=== PATIENT | female | born 2000 | race Caucasian/White ===

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

== ENCOUNTER 2022-07-18 14:20 | Emergency (ER) | payer OTHER, SELFPAY ==
[2022-07-18] MEDS ORDERED: predniSONE 20 MG TAB ONE (15:19)
[2022-07-18] MEDS ORDERED: Albuterol Sulfate 2.5 mg/3 ml Neb ONE (16:17)
== END 2022-07-18 17:25 | disposition home or self-care (01) ==
LOC: NAV ERS 14:20
DX: J45.901 Unspecified asthma with (acute) exacerbation (principal); J10.1 Influenza due to other identified influenza virus with other respiratory manifestations; Z20.822 Contact with and (suspected) exposure to COVID-19; Z79.899 Other long term (current) drug therapy
CPT/HCPCS: 87804; 94640; J7512; J7611; J7620; U0003; U0005

== ENCOUNTER 2024-08-10 15:12 | Emergency (ER) | payer OTHER | END 2024-08-10 16:15 | disposition left against medical advice (07) | LOC: NAV ERS 15:12 | DX: Z53.21 Procedure and treatment not carried out due to patient leaving prior to being seen by health care provider (principal) ==